=== PATIENT | male | born 1955 | race Caucasian/White ===

== ENCOUNTER 2017-02-24 10:23 | Inpatient (IN) | payer BC, OTHER ==
[~2017-02-24] VITALS: Ht 185.4 cm; Wt 98.7 kg
[2017-02-24] MEDS ORDERED: LACTATED RINGERS 1,000 ML IV SCH ×2 (10:39→20:00)
[2017-02-24 10:41] VITALS: BP 118/70
[2017-02-24] MEDS ORDERED: LIDOCAINE 1%, 2ML SQ PRN (11:00)
[2017-02-24] MEDS ORDERED: MIDAZOLAM 1 MG/ML, 2ML ONE (11:41)
[2017-02-24] MEDS ORDERED: HYDROmorphone 1 MG/ML, 1ML ONE ×2 (11:41→13:54)
[2017-02-24] MEDS ORDERED: FENTANYL PF 100 MCG/2ML ONE ×3 (11:41→13:54)
[2017-02-24] MEDS ORDERED: DEXAMETHASONE 4 MG/ML, 1ML ONE (11:49)
[2017-02-24] MEDS ORDERED: SUCCINYLCHOLINE 20 MG/ML, 10ML ONE (11:49)
[2017-02-24] MEDS ORDERED: PROPOFOL 10 MG/ML, 20ML ONE (11:49)
[2017-02-24] MEDS ORDERED: ONDANSETRON 2MG/ML, 2ML ONE (11:49)
[2017-02-24] MEDS ORDERED: ONDANSETRON 2MG/ML, 2ML IVPush PRN (12:00)
[2017-02-24] MEDS ORDERED: OXYcodone 5 MG/5 ML ORAL.SOL UDC PO PRN (12:00)
[2017-02-24] MEDS ORDERED: ACETAMINOPHEN 325 MG TABLET PO PRN (12:00)
[2017-02-24] MEDS ORDERED: hydrALAzine 20 MG/ML, 1ML IV PRN (13:00)
[2017-02-24 13:55] LABS: IOPTH BASELINE 138 pg/mL; SAMPLE 5 %DROP IOPTH > 98 %
[2017-02-24] MEDS: FENTANYL PF 100 MCG/2ML IV PRN ×2 (13:55→15:10)
[2017-02-24] MEDS: HYDROmorphone 1 MG/ML, 1ML IV PRN ×3 (14:00→14:25)
[2017-02-24] MEDS ORDERED: OXYcodone 5 MG/5 ML ORAL.SOL UDC ONE (15:21)
[2017-02-24] MEDS ORDERED: ACETAMINOPHEN 650 MG/20.3 ML UDC ONE (15:21)
[2017-02-24 18:45] VITALS: BP 134/71
[2017-02-24 19:00] VITALS: BP 139/69
[2017-02-24] MEDS ORDERED: morphine SULFATE 10 MG/ML, 1ML IV PRN (20:00)
[2017-02-24] MEDS ORDERED: ONDANSETRON 2MG/ML, 2ML IV PRN (20:00)
[2017-02-24 20:30] VITALS: BP 124/62
[2017-02-24] MEDS ORDERED: CALCIUM CARBONATE 500 MG TAB.CHEW PO SCH (21:00)
[2017-02-24] MEDS: HYDROcodone/APAP 5/325 TABLET PO PRN (21:20)
[2017-02-25 00:11] VITALS: BP 133/62
[2017-02-25] MEDS: HYDROcodone/APAP 5/325 TABLET PO PRN (01:37)
[2017-02-25 04:14] VITALS: BP 113/46
[2017-02-25 08:38] VITALS: BP 123/74
[2017-02-25] MEDS ORDERED: CALCIUM CARBONATE 500 MG TAB.CHEW PO SCH (09:00)
[2017-02-25] MEDS ORDERED: HYDR15SO3 PO/NG (09:45)
[2017-02-25] MEDS ORDERED: OMEP-110 PO (09:46)
[2017-02-25 10:03] VITALS: BP 110/65
[2017-02-25] MEDS ORDERED: HYDR-3240 PO (10:32)
[2017-02-25] MEDS ORDERED: CALC200T3 PO (10:33)
[2017-02-25] MEDS ORDERED: LEVO125T PO (10:33)
== END 2017-02-25 10:46 | disposition home or self-care (01) | DRG 627 ==
LOC: OUT 10:23 → 4NOR 18:25 → OUT 21:49 → 4NOR 22:13 → DCLOUNGE 02-25 10:30
PROVIDERS: ADMIT Surgery; ATTEND Surgery
PROC: 0GBP0ZZ Excision of Left Inferior Parathyroid Gland, Open Approach (ICD-10-PCS; 2017-02-24)
PROC: 4A11X4G Monitoring of Peripheral Nervous Electrical Activity, Intraoperative, External Approach (ICD-10-PCS; 2017-02-24)
PROC: 0GTK0ZZ Resection of Thyroid Gland, Open Approach (ICD-10-PCS; principal; 2017-02-24 13:30)
DX: D35.1 Benign neoplasm of parathyroid gland (principal); E55.9 Vitamin D deficiency, unspecified; E21.0 Primary hyperparathyroidism
CPT/HCPCS: 36415; 82040; 82310; 83970; 88305; 88307; 88331; 88333; J1100; J1170; J2250; J2405; J2704; J3010; C1760; J0330; J7120